=== PATIENT | female | born 1935 | race Two or more races ===

== ENCOUNTER 2020-09-21 20:41 | Emergency (ER) | payer OTHER ==
[~2020-09-21] VITALS: Ht 157.5 cm; Wt 49.9 kg
[2020-09-21] MEDS ORDERED: TOPROL XL25 M1 PO (21:04)
== END 2020-09-22 05:24 | disposition home or self-care (01) ==
LOC: ER 20:41
DX: R07.89 Other chest pain (principal)